=== PATIENT | female | born 1950 | race Caucasian/White ===

== ENCOUNTER 2017-03-16 11:31 | Inpatient (IN) ==
--- OUTSIDE RECORDS SUMMARY | 2017-03-16 11:44 | External Medical Summary | Continuity of Care Document ---
:1950 Author Organization [facility] Address [address] [place] [address] Care Team Providers Name Role Phone Ximena Us MD Unavailable Unavailable Insurance Providers Payer Name Policy Number Subscriber Name Relationship Other Commercial [id number] Kylie Joe Self / Same As Patient Advance Directives Directive Response Recorded Date/Time Do You Have A Living Will? No 03/02/16 2:59pm Do You Have a DPOA? No 03/02/16 2:59pm Problems Active Problems Medical Problem Onset Date Status Tibial plateau fracture Unknown Acute Surgical Problem Onset Date Status History of open reduction and internal fixation (ORIF) procedure 03/04/2016 Acute Medications Current Home Medications Medication Dose Units Route Directions Days/Qty Instructions Start Date Multivitamins 1 1 Udcap Oral Daily for 03/03/16 Udcap Supplement Insulin Detemir 100 15 Unit Sub-Q Bedtime for 15 03/03/16 Unit/Ml (3 Ml) Diabetes Tramadol Hcl 50 Mg 50 Mg Oral Three Times 03/03/16 Daily As Needed for Pain Potassium Chloride 20 Meq Oral Daily for 60 20 MEQ=2 03/03/16 10 Meq Supplement CAPSULES Glyburide 5 Mg 10 Mg Oral Twice A Day for 360 10MG=TWO 03/03/16 Diabetes TABLETS Amlodipine Besylate 10 Mg Oral Daily for 30 03/03/16 10 Mg Coronary Artery Disease Enalapril Maleate 20 Mg Oral Twice A Day for 03/03/16 100 % Hypertension Atorvastatin 80 Mg Oral Daily for 30 03/03/16 Calcium 80 Mg Supplement Meclizine Hcl 12.5 25 Mg Oral Daily for 25MG=TWO 03/03/16 Mg Dizziness TABLETS Metformin Hcl 1,000 1,000 Mg Oral Twice A Day for 03/03/16 Mg Diabetes Furosemide (Lasix 40 Mg Oral As Needed for 30 03/03/16 40 Mg) 40 Mg Diuretic Cyclobenzaprine Hcl 10 Mg Oral Three Times 15 03/03/16 (Flexeril) 5 Mg Daily As Needed for Hypertension Trazodone Hcl 300 300 Mg Oral Bedtime for 03/05/16 Mg Anxiety Aspirin 325 Mg 325 Mg Oral Daily 30 03/06/16 Oxycodone/Acetamino 1-2 Tab Oral Every 4 Hours as 60 03/06/16 phen 5 Mg-325 Mg needed for Pain Past Home Medications Medication Directions Ordered Status Aspirin 81 Mg Tablet.dr, 81 Mg Oral Daily for Anticoagulant 03/03/16 Discontinued Social History Social History Problem Response Recorded Date/Time History of Street Drugs? No 03/03/2016 5:00pm Hx Alcohol Use No 03/03/2016 5:00pm Query Response Start Date Stop Date Smoking status: Unknown if ever smoked Hospital Discharge Instructions Instructions Discharge Discharge/Dismiss patient: Dismiss/release patient order: Home Return to office appointment: 2 WEEKS Plan of Care Discharge Date 03/06/16 5:25pm Instructions/Education Provided Oxycodone/Acetamin(Percocet) CORE MEASURES FOR D/C - [facility] Constipation (DC) ORIF of a Leg Fracture (DC) Prescriptions See Medication Section Functional Status No functional status results. Allergies, Adverse Reactions, Alerts Allergen Type Severity Reaction Status Last Updated Sulfa (Sulfonamide Antibiotics) Allergy Intermediate Active 03/03/16 Iodine Allergy Intermediate Active 03/03/16 Atenolol Allergy Intermediate Active 03/03/16 rossy Allergy Intermediate Active 03/03/16 Immunizations Name Given Type Pneumococcal Adult (23) 03/06/16 Administered Vital Signs Acute Vital Signs Vital Response Date/Time Temperature (Fahrenheit) 98.3 degrees F (97.6 - 99.5) 03/06/2016 4:51pm Pulse Pulse Rate 85 bpm (60 - 100) 03/06/2016 4:51pm Respiratory Rate 18 bpm (10 - 24) 03/06/2016 4:51pm Oxygen Saturation O2 Sat by Pulse Oximetry 97 % (93 - 100) 03/06/2016 4:51pm Blood Pressure 150/70 mm Hg 03/06/2016 4:51pm Blood Pressure Mean 96 mm Hg 03/06/2016 4:51pm Height 5 ft 3 in Weight 201 lb Body Mass Index 35.0 kg/m^2 Results Laboratory Results Test Name Result Units Flags Reference Collection Result Comments Date/Time Date/Time White Blood 10.6 1000/c 3.8-10.8 03/06/2016 03/06/2016 Count mm 5:15am 5:37am Red Blood Count 4.00 MIL/uL 3.80-5.10 03/06/2016 03/06/2016 5:15am 5:37am Hemoglobin 11.6 g/dL L 11.7-15.5 03/06/2016 03/06/2016 5:15am 5:37am Hematocrit 35.0 % 35.0-45.0 03/06/2016 03/06/2016 5:15am 5:37am Mean 88 fL 80-100 03/06/2016 03/06/2016 Corpuscular 5:15am 5:37am Volume Mean 29 pg 27-33 03/06/2016 03/06/2016 Corpuscular 5:15am 5:37am Hemoglobin Mean 33 g/dL 32-36 03/06/2016 03/06/2016 Corpuscular 5:15am 5:37am Hemoglobin Concent Red Cell 12.5 % 11.0-15.0 03/06/2016 03/06/2016 Distribution 5:15am 5:37am Width Platelet Count 253 1000/c 140-400 03/06/2016 03/06/2016 mm 5:15am 5:37am Mean Platelet 8.4 fL L 8.7-11.9 03/06/2016 03/06/2016 Volume 5:15am 5:37am Granulocytes 62.5 % 03/06/2016 03/06/2016 (%) 5:15am 5:37am Lymphocytes % 24.2 % 03/06/2016 03/06/2016 5:15am 5:37am Monocytes % 10.2 % 03/06/2016 03/06/2016 5:15am 5:37am Eosinophils % 2.5 % 03/06/2016 03/06/2016 5:15am 5:37am Basophils % 0.6 % 03/06/2016 03/06/2016 5:15am 5:37am Granulocytes # 6.64 1000/u 1.50-7.80 03/06/2016 03/06/2016 L 5:15am 5:37am Lymphocytes # 2.57 1000/u 0.85-3.90 03/06/2016 03/06/2016 L 5:15am 5:37am Monocytes # 1.08 1000/u H 0.20-0.95 03/06/2016 03/06/2016 L 5:15am 5:37am Eosinophils # 0.27 1000/u 0.01-0.50 03/06/2016 03/06/2016 L 5:15am 5:37am Basophils # 0.06 1000/u 0.00-0.20 03/06/2016 03/06/2016 L 5:15am 5:37am Segmented 58 % 50-70 03/03/2016 03/03/2016 Neutrophils 7:45pm 8:20pm Lymphocytes 30 % 20-44 03/03/2016 03/03/2016 7:45pm 8:20pm Monocytes 6 % 2-9 03/03/2016 03/03/2016 7:45pm 8:20pm Eosinophils 5 % H 0-4 03/03/2016 03/03/2016 7:45pm 8:20pm Basophils 1 % 0-2 03/03/2016 03/03/2016 7:45pm 8:20pm Red Blood Cell NORMAL NORMAL 03/03/2016 03/03/2016 Morphology 7:45pm 8:20pm White Blood NORMAL NORMAL 03/03/2016 03/03/2016 Cell Morphology 7:45pm 8:20pm Platelet LARGE NORMAL 03/03/2016 03/03/2016 Morphology PLTS 7:45pm 8:20pm PRESENT Urine Color YELLOW YELLOW 03/03/2016 03/03/2016 10:00pm 10:13pm Urine CLEAR CLEAR 03/03/2016 03/03/2016 Appearance 10:00pm 10:13pm Urine Specific 1.010 03/03/2016 03/03/2016 [place] 10:00pm 10:13pm Reference Range <=1.005-1.035 Urine pH 7.5 5.0-8.0 03/03/2016 03/03/2016 10:00pm 10:13pm Urine Protein NEGATIVE mg/dL NEGATIVE 03/03/2016 03/03/2016 10:00pm 10:13pm Urine Glucose NEGATIVE mg/dL NEGATIVE 03/03/2016 03/03/2016 10:00pm 10:13pm Urine Ketones NEGATIVE mg/dL NEGATIVE 03/03/2016 03/03/2016 10:00pm 10:13pm Urine Blood NEGATIVE NEGATIVE 03/03/2016 03/03/2016 10:00pm 10:13pm Urine Nitrite NEGATIVE NEGATIVE 03/03/2016 03/03/2016 10:00pm 10:13pm Urine Leukocyte NEGATIVE NEGATIVE 03/03/2016 03/03/2016 Esterase 10:00pm 10:13pm Urine Bilirubin NEGATIVE NEGATIVE 03/03/2016 03/03/2016 10:00pm 10:13pm Urine 0.2 mg/dL 0.2-1.0 03/03/2016 03/03/2016 Urobilinogen 10:00pm 10:13pm N/A No NO 03/03/2016 03/03/2016 10:00pm 10:13pm Sodium Level 135 mmol/L 135-146 03/06/2016 03/06/2016 5:15am 5:51am Potassium Level 3.6 mmol/L 3.5-5.0 03/06/2016 03/06/2016 5:15am 5:51am Chloride Level 96 mmol/L L 98-110 03/06/2016 03/06/2016 5:15am 5:51am Carbon Dioxide 27.2 mmol/L 19.0-30.0 03/06/2016 03/06/2016 Level 5:15am 5:51am Anion Gap 12 7-17 03/06/2016 03/06/2016 5:15am 5:51am Glucose Level 163 mg/dL H 65-99 03/06/2016 03/06/2016 5:15am 5:51am Blood Urea 5 mg/dL L 7-25 03/06/2016 03/06/2016 Nitrogen 5:15am 5:51am Creatinine 0.40 mg/dL L 0.50-0.99 03/06/2016 03/06/2016 5:15am 5:51am Estimated GFR 110 >60 03/06/2016 03/06/2016 (Non- 5:15am 5:51am Units: mL/min/1.73m2) [place] Estimated GFR 128 >60 03/06/2016 03/06/2016 ( 5:15am 5:51am Units: mL/min/1.73m2) [place]) BUN/Creatinine 13 7-25 03/06/2016 03/06/2016 Ratio 5:15am 5:51am Estimated GFR 152.43 ml/min >30 03/06/2016 03/06/2016 Adjusted body ([place] 5:15am 5:51am weight used for t) calculation. Calculated 281 mOSM/k 280-300 03/06/2016 03/06/2016 Osmolality g 5:15am 5:51am Total Protein 6.6 g/dL 6.1-8.1 03/03/2016 03/03/2016 7:45pm 8:10pm Albumin 3.9 g/dL 3.6-5.1 03/03/2016 03/03/2016 7:45pm 8:10pm Globulin 2.7 g/dL 1.9-3.7 03/03/2016 03/03/2016 7:45pm 8:10pm Calcium Level 8.7 mg/dL 8.6-10.2 03/06/2016 03/06/2016 5:15am 5:51am Corrected 9.8 mg/dL 8.6-10.2-c 03/03/2016 03/03/2016 Calcium alc 7:45pm 8:10pm Total Bilirubin 0.3 mg/dL 0.2-1.2 03/03/2016 03/03/2016 7:45pm 8:10pm Magnesium Level 1.8 mg/dL 1.5-2.5 03/04/2016 03/04/2016 3:11am 4:02am Alkaline 56 U/L 33-130 03/03/2016 03/03/2016 Phosphatase 7:45pm 8:10pm Aspartate Amino 19 U/L 10-35 03/03/2016 03/03/2016 Transf 7:45pm 8:10pm (AST/SGOT) Alanine 20 U/L 6-29 03/03/2016 03/03/2016 Aminotransferas 7:45pm 8:10pm e (ALT/SGPT) AST/ALT Ratio 0.950 0.10-40.00 03/03/2016 03/03/2016 7:45pm 8:10pm Bedside Glucose 213 mg/dL H 65-99 03/06/2016 03/06/2016 ONHAR-RR-MYHR TESTING PERFORMED BY PERSONNEL OF: 12:34pm 12:41pm [facility] [address] [place] [address] Procedures Procedure Status Date Provider(s) Open reduction and internal fixation (ORIF) Completed 03/04/16 Edgar Wang MD of fracture of right tibialplateau X-ray of left tibia and fibula Active 03/03/16 Rosas Swenson PA-C X-ray of left foot, three or more views Active 03/03/16 Rosas Swenson X-ray of chest, single view Active 03/03/16 Rosas Swenson PA-C X-ray of right knee, two views Active 03/04/16 Edgar Wang MD 12-lead electrocardiogram Active 03/05/16 Rosas Swenson PA-C Encounters Encounter Location Arrival/Admit Date Discharge/Depart Date Attending Provider Departed [facility] 03/03/16 4:17pm 03/06/16 5:25pm Edgar [facility] Recent Diagnosis Tibial plateau fracture
--- OUTSIDE RECORDS SUMMARY | 2017-03-16 11:44 | External Medical Summary | Clinical Summary ---
:1950 Author Organization [facility] Address [address] [address] Phone Allergies Not on File Current Medications Not on file Active Problems Not on file Social History Tobacco Use Types Packs/Day Years Used Date Never Assessed Sex Assigned at Date Recorded Not on file Plan of Treatment Health Maintenance Due Date Last Done Comments Hepatitis C Screening 1950 DTaP,Tdap,and Td Vaccines (1 - Tdap) 1970 Breast Cancer Screening-Mammogram 2001 Colon Cancer Screening 2001 Zoster Vaccine (#1) 2011 Pneumo-Adult (1 of 2 - PCV13) 2016 Influenza Vaccine (#1) 2016 Results Not on filefrom Last 3 Months
[2017-03-16] MEDS ORDERED: NS 1,000 ML IV ONE (11:45)
[2017-03-16] MEDS: SALINE FLUSH 10ml SYRINGE IVF PRN ×2 (11:53→13:03)
[2017-03-16] MEDS ORDERED: FentaNYL 100 MCG/2 ML INJECTION IVP ONE (12:57)
--- NOTE | 2017-03-16 13:15 | Emergency Department Report ---
General Adult HPI - General Chief complaint: Weakness Stated complaint: weakness Time Seen by Provider: 03/16/17 11:40 - History of Present Illness HPI narrative: 66-year-old female who "feels horrible". She is brought in by EMS because of knee pain and weakness. As we talked about her issues, it seems that it is more weakness that is the problem except for slight increase in knee pain over the last 2 days. She does have a previous history of DVT. She is on our class postop from a total knee replacement done last week. She has been ambulating until the last 2 days when she became too weak and in too much pain to ambulate without more assistance despite using a walker. No fever or chills. Some nausea , no vomiting or diarrhea. She's had no blood in her stool and the wound is not been bleeding. - Related Data Home Medications Medication Instructions Recorded Confirmed Amlodipine [Norvasc] 10 mg PO HS 03/16/17 03/16/17 Apixaban [Eliquis] 2.5 mg PO BID 03/16/17 03/16/17 DiphenhydrAMINE [Benadryl] 25 mg PO Q4H PRN 03/16/17 03/16/17 Enalapril [Vasotec] 20 mg PO DAILY 03/16/17 03/16/17 GlyBURIDE [Micronase] 10 mg PO BID 03/16/17 03/16/17 Hydrocodone/APAP 7.5/325 [[place] 1 tab PO Q4H PRN 03/16/17 03/16/17 7.5/325] Insulin Detemir [Levemir] 15 unit SQ HS 03/16/17 03/16/17 Metformin [Glucophage] 1,000 mg PO BIDWM 03/16/17 03/16/17 Tramadol [Ultram] 50 mg PO Q4H PRN 03/16/17 03/16/17 buPROPion HCl [Wellbutrin Xl] 150 mg PO DAILY 03/16/17 03/16/17 Allergies Allergy/AdvReac Type Severity Reaction Status Date / Time atenolol Allergy Severe ANAPHYLAXSI Verified 03/16/17 11:40 S Estrogens Allergy Severe PE EMBOLSIM Verified 03/16/17 11:40 iodine Allergy Severe ANAPHYLAXIS Verified 03/16/17 11:40 Sulfa (Sulfonamide Allergy Mild Verified 03/16/17 11:40 Antibiotics) alprazolam [From Xanax] AdvReac Mild Verified 03/16/17 11:40 Review of Systems All systems: reviewed and negative except as stated [facility] Medical History (Last Updated 01/08/17 @ 11:45 by Denise Hansen MA) Bronchitis (Acute Medical) Pneumonia (Acute Medical) HTN (hypertension) (Chronic Medical) Hyperlipidemia (Chronic Medical) Type II diabetes mellitus (Chronic Medical) Pulmonary embolism (Resolved Medical) Surgical History: [id number], 1976, 1981. HYSTERECTOMY-1983. SHATTERED TIBIA PLATEAU-2016 ([facility]) Family History: Family History (Last Updated 01/08/17 @ 11:50 by Denise Hansen MA) Mother Arthritis Dementia Heart attack HTN (hypertension) with goal to be determined Stroke Thyroid disease Parkinsons Maternal Aunt Breast cancer Father Bladder cancer Hyperlipidemia Maternal Grandmother Heart attack - Social History Smoking status: Never smoker Substance use type: does not use Physical Exam - Limitations Limitations: no limitations - General General appearance: alert, in distress (pain and fatigue) - Normal Exams: Head:: Normocephalic without trauma Chest/Respirations:: Clear all islas, with good airflow, and symmetry bilaterally Cardiovascular:: Regular rate and rhythm, without murmur or gallop, Pulses 2+ all extremities, capillary refill, <2 seconds all extremities Abdomen:: Bowel sounds positive, soft, non-tender, non-distended, no hepatosplenomegaly, masses or bruits noted Neurological:: Patient is alert, and oriented, cranial nerves, motor/sensory/ cerebellar, exams w/o gross deficits, to observation Psychiatric:: Patient exhibits, appropriate attention, emotion and affect - Expanded Lower Extremity Exam right Knee exam: Present: tenderness (diffusely over the knee joint), swelling ( appropriate.), laceration (incision is healing appropriately), erythema. Absent : full ROM, ecchymosis Course Vital Signs Temperature 97.8 F 03/16/17 11:35 Pulse Rate 112 H 03/16/17 11:35 Respiratory Rate 16 03/16/17 11:35 Blood Pressure 130/59 03/16/17 11:35 Pulse Oximetry 100 03/16/17 11:35 Temperature 97.8 F 03/16/17 11:35 Pulse Rate 112 H 03/16/17 11:35 Respiratory Rate 16 03/16/17 11:35 Blood Pressure 130/59 03/16/17 11:35 Pulse Oximetry 100 03/16/17 11:35 Medical Decision Making - Medical Records Medical records reviewed: Yes: I reviewed the patient's medical records. - Lab Data Result diagrams: 03/16/17 11:55 03/16/17 11:55 Lab Results 03/16/17 03/16/17 03/16/17 Range/Units 11:55 11:55 12:12 WBC 21.1 H (4.5-11.0) T/MM3 RBC 1.65 L (4.00-5.20) M/MM3 Hgb 4.8 L* (12-16) GM/DL Hct 15.7 L* (36-46) % MCV 95.2 (80-100) UM3 MCH 29.1 (26-34) UUG MCHC 30.6 L (31-37) GM/DL RDW Std Deviation 42.7 (36.9-50.2) FL Plt Count 456 H (130-400) T/MM3 MPV 8.7 L (9.4-12.4) UM3 Immature Gran % (Auto) Not performed Neut % (Auto) Not performed Lymph % (Auto) Not performed [place] % (Auto) Not performed Eos % (Auto) Not performed Baso % (Auto) Not performed Neut # (Auto) Not performed Lymph # (Auto) Not performed [place] # (Auto) Not performed Eos # (Auto) Not performed Baso # (Auto) Not performed Abs Immat Gran (auto) Not performed Neutrophils % (Manual) 60.0 (33-66) % Band Neutrophils % 5.0 (0-6) % Lymphocytes % (Manual) 15.0 L (23-45) % Monocytes % (Manual) 8.0 (0-9.0) % Eosinophils % (Manual) 3.0 (0-4) % Metamyelocytes % 5.0 H (0-0) % Myelocytes % 4.0 H (0-0) % Neutrophils # (Manual) 12.7 H (1.8-7.7) T/MM3 Band Neutrophils # 1.1 T/MM3 Lymphocytes # (Manual) 3.2 (1-4.8) T/MM3 Monocytes # (Manual) 1.7 H (0-0.8) T/MM3 Eosinophils # (Manual) 0.6 H (0-0.5) T/MM3 Metamyelocytes # 1.1 T/MM3 Myelocytes # 0.8 T/MM3 Nucleated RBCs 1 Anisocytosis 1+ RBC Morph Comment Abnormal Turbidity < 20 (0-20) Sodium 131 L (134-144) MEQ/L Potassium 4.6 (3.6-5) MEQ/L Chloride 99 (98-107) MEQ/L Carbon Dioxide 23 (22-30) MEQ/L Anion Gap 9 (5-15) MEQ/L BUN 25.0 H (7-17) MG/DL Creatinine 0.5 L (0.7-1.2) MG/DL GFR Calculation 124 BUN/Creatinine Ratio 50 H (6-26) RATIO Glucose 262 H (65-110) MG/DL Calculated Osmolality 266 (261-280) MOSM/KG Calcium 8.4 (8.4-10.2) MG/DL Total Bilirubin 0.40 (0.20-1.30) MG/DL Icterus Index < 2 (0-7) AST 17 (14-36) U/L ALT 28 (9-52) U/L Alkaline Phosphatase 46 (38-126) U/L C-Reactive Protein 11.4 H (0-9) MG/L Total Protein 5.6 L (6.3-8.2) G/DL Albumin 3.0 L (3.5-5.0) G/DL Globulin 2.6 (2.4-3.6) G/DL Albumin/Globulin Ratio 1.2 (1.1-2.2) RATIO Plasma Lactate 2.3 H (0.6-2.2) MMOL/L Specimen Hemolysis < 15 (0-25) Ur Collection Type Urine, clean catch Urine Color Yellow (YELLOW) Urine Clarity Clear Urine pH 5.5 (5.0-8.0) Ur Specific [place] 1.020 (1.015-1.025) Urine Protein Negative (NEGATIVE) Urine Glucose (UA) 2+ A (NEGATIVE) Urine Ketones 1+ A (NEGATIVE) Urine Occult Blood Negative (NEGATIVE) Urine Nitrate Negative (NEGATIVE) Urine Bilirubin Negative (NEGATIVE) Urine Urobilinogen 0.2 (NORMAL) EU/DL Ur Leukocyte Esterase Negative (NEGATIVE) Urinalysis Comment Microscopic not ind. Blood Type Antibody Screen Crossmatch (AHG) 03/16/17 Range/Units 12:15 WBC (4.5-11.0) T/MM3 RBC (4.00-5.20) M/MM3 Hgb (12-16) GM/DL Hct (36-46) % MCV (80-100) UM3 MCH (26-34) UUG MCHC (31-37) GM/DL RDW Std Deviation (36.9-50.2) FL Plt Count (130-400) T/MM3 MPV (9.4-12.4) UM3 Immature Gran % (Auto) Neut % (Auto) Lymph % (Auto) [place] % (Auto) Eos % (Auto) Baso % (Auto) Neut # (Auto) Lymph # (Auto) [place] # (Auto) Eos # (Auto) Baso # (Auto) Abs Immat Gran (auto) Neutrophils % (Manual) (33-66) % Band Neutrophils % (0-6) % Lymphocytes % (Manual) (23-45) % Monocytes % (Manual) (0-9.0) % Eosinophils % (Manual) (0-4) % Metamyelocytes % (0-0) % Myelocytes % (0-0) % Neutrophils # (Manual) (1.8-7.7) T/MM3 Band Neutrophils # T/MM3 Lymphocytes # (Manual) (1-4.8) T/MM3 Monocytes # (Manual) (0-0.8) T/MM3 Eosinophils # (Manual) (0-0.5) T/MM3 Metamyelocytes # T/MM3 Myelocytes # T/MM3 Nucleated RBCs Anisocytosis RBC Morph Comment Turbidity (0-20) Sodium (134-144) MEQ/L Potassium (3.6-5) MEQ/L Chloride (98-107) MEQ/L Carbon Dioxide (22-30) MEQ/L Anion Gap (5-15) MEQ/L BUN (7-17) MG/DL Creatinine (0.7-1.2) MG/DL GFR Calculation BUN/Creatinine Ratio (6-26) RATIO Glucose (65-110) MG/DL Calculated Osmolality (261-280) MOSM/KG Calcium (8.4-10.2) MG/DL Total Bilirubin (0.20-1.30) MG/DL Icterus Index (0-7) AST (14-36) U/L ALT (9-52) U/L Alkaline Phosphatase (38-126) U/L C-Reactive Protein (0-9) MG/L Total Protein (6.3-8.2) G/DL Albumin (3.5-5.0) G/DL Globulin (2.4-3.6) G/DL Albumin/Globulin Ratio (1.1-2.2) RATIO Plasma Lactate (0.6-2.2) MMOL/L Specimen Hemolysis (0-25) Ur Collection Type Urine Color (YELLOW) Urine Clarity Urine pH (5.0-8.0) Ur Specific [place] (1.015-1.025) Urine Protein (NEGATIVE) Urine Glucose (UA) (NEGATIVE) Urine Ketones (NEGATIVE) Urine Occult Blood (NEGATIVE) Urine Nitrate (NEGATIVE) Urine Bilirubin (NEGATIVE) Urine Urobilinogen (NORMAL) EU/DL Ur Leukocyte Esterase (NEGATIVE) Urinalysis Comment Blood Type O Positive Antibody Screen Negative Crossmatch (AHG) See Detail Disposition Prescriptions: No Action Hydrocodone/APAP 7.5/325 [[place] 7.5/325] 1 tab PO Q4H PRN PRN Reason: Pain Apixaban [Eliquis] 2.5 mg PO BID buPROPion HCl [Wellbutrin Xl] 150 mg PO DAILY Enalapril [Vasotec] 20 mg PO DAILY Amlodipine [Norvasc] 10 mg PO HS Insulin Detemir [Levemir] 15 unit SQ HS GlyBURIDE [Micronase] 10 mg PO BID DiphenhydrAMINE [Benadryl] 25 mg PO Q4H PRN PRN Reason: Itching Tramadol [Ultram] 50 mg PO Q4H PRN PRN Reason: Pain Metformin [Glucophage] 1,000 mg PO BIDWM Referrals: Evan Sharp DO [Family Provider] -
[2017-03-16] MEDS ORDERED: NS FLUSH BAG 500ml IV PRN ×2 (14:10→14:11)
[2017-03-16 14:29] VITALS: BMI 33.5
[2017-03-16] MEDS ORDERED: MORPHINE SULFATE 2mg INJECTION IVP PRN (14:37)
[2017-03-16] MEDS ORDERED: CEFTRIAXONE 1 G in NS 100 ML IV SCH (14:45)
[2017-03-16] MEDS ORDERED: ONDANSETRON 4 MG/2 ML INJECTION IVP PRN (15:00)
[2017-03-16] MEDS ORDERED: SALINE FLUSH 10ml SYRINGE IV PRN (15:00)
[2017-03-16] MEDS ORDERED: DiphenhydrAMINE 25 MG CAPSULE PO PRN (15:05)
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
--- NOTE | 2017-03-16 15:50 | Pharmacy Consult-Antibiotics ---
Pharmacy Consult-Vancomycin - Laboratory Information WBC 21.1 T/MM3 (4.5-11.0) H 03/16/17 11:55 BUN 25.0 MG/DL (7-17) H 03/16/17 11:55 Creatinine 0.5 MG/DL (0.7-1.2) L 03/16/17 11:55 Procalcitonin 0.10 NG/ML 03/16/17 11:55 - Consult Information 66 y.o. female started on Vancomycin per pharmacy protocol for empiric coverage of possible septic joint. goal trough range= 15 to 20 mcg/ml Will give vancomycin 1,750 mg IV x 1 dose then Vancomycin 1,500 mg IV Q18H starting 03/17/17 @1000 Pharmacy will monitor and adjust as needed. Thank you, Andie Boyle [facility]
[2017-03-16] MEDS: NS 1,000 ML IV SCH ×2 (16:57→22:38)
[2017-03-16] MEDS: GLYBURIDE 5 MG TABLET PO SCH (17:47)
[2017-03-16] MEDS ORDERED: FUROSEMIDE 20 MG/2 ML INJECTION IVP ONE (19:00)
[2017-03-16] MEDS: SENNA + DOCUSATE TABLET PO SCH (20:58)
[2017-03-16] MEDS: INSULIN DETEMIR 100unit/ml INJECTION SQ SCH (20:58)
[2017-03-16] MEDS: HYDROCODONE/APAP 7.5 MG/325 MG TABLET PO PRN (21:29)
[2017-03-16] MEDS: TRAMADOL 50 MG TABLET PO PRN (22:31)
[2017-03-16] MEDS: CYCLOBENZAPRINE 10 MG TABLET PO PRN (23:33)
[2017-03-17] MEDS: HYDROCODONE/APAP 7.5 MG/325 MG TABLET PO PRN ×4 (02:36→20:25)
[2017-03-17] MEDS: CYCLOBENZAPRINE 10 MG TABLET PO PRN ×3 (06:18→16:29)
[2017-03-17] MEDS: TRAMADOL 50 MG TABLET PO PRN ×4 (06:19→23:23)
--- NOTE | 2017-03-17 07:39 | Ultrasound Report ---
Indication: post knee replacement, hx of dvt PROCEDURE: US venous doppler LE RT: Encounter: Initial Comparison: None Technique: Color Doppler duplex and grayscale sonographic imaging of the right lower extremity was performed. Findings: There is no evidence for acute deep venous thrombosis in the right thigh. Specifically, serial graded compression was performed from the inguinal ligament to the popliteal bifurcation, on the right thigh, demonstrating appropriate compressibility of the deep venous system. In addition, color and pulsed Doppler demonstrate appropriate spontaneous flow, variation with respiration, and augmentation with calf compression. At the ankle, normal flow is identified in the posterior tibial veins; these vessels are also normal in caliber. Impression: No evidence of acute DVT in the right lower limb. There is a preliminary report by [facility]. .
[2017-03-17] MEDS: GLYBURIDE 5 MG TABLET PO SCH ×2 (09:36→17:57)
[2017-03-17] MEDS: SALINE FLUSH 10ml SYRINGE IVF PRN ×2 (09:36→13:19)
[2017-03-17] MEDS: BuPROPion XL 150mg (24HR) TABLET PO SCH (09:36)
[2017-03-17] MEDS: CEFTRIAXONE 1 G in NS 100 ML IV SCH (09:37)
[2017-03-17] MEDS: SENNA + DOCUSATE TABLET PO SCH ×2 (09:56→21:00)
[2017-03-17] MEDS: POLYETHYL GLYCOL 3350 17gm PACKET PO SCH (09:57)
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
--- NOTE | 2017-03-17 12:25 | XRay Report ---
INDICATION: post op PROCEDURE: CHEST 2-VIEWS UPRIGHT (PA & LAT) Encounter: Initial COMPARISON: February 18, 2017 FINDINGS: The lungs are clear without evidence of focal abnormal airspace opacity. There is no pleural effusion or pneumothorax. The heart size, mediastinal contours and pulmonary vascularity are within normal limits. There is no significant skeletal abnormality. IMPRESSION: No acute cardiopulmonary disease. .
[2017-03-17] MEDS ORDERED: INSULIN ASPART 100unit/ml INJECTION SQ ONE (13:17)
[2017-03-17] MEDS ORDERED: PNEUMOCOCCAL VAC ADMIN CHARGE INJ ONE (14:00)
[2017-03-17] MEDS ORDERED: PNEUMOCOCCAL 23 VACCINE 0.5ml INJECTION IM ONE (16:50)
[2017-03-17] MEDS: METFORMIN 1,000 MG TABLET PO SCH (18:17)
[2017-03-17] MEDS: INSULIN ASPART 100unit/ml INJECTION SQ PRN (21:50)
[2017-03-17] MEDS: INSULIN DETEMIR 100unit/ml INJECTION SQ SCH (21:50)
[2017-03-18] MEDS: CYCLOBENZAPRINE 10 MG TABLET PO PRN (00:20)
[2017-03-18] MEDS: HYDROCODONE/APAP 7.5 MG/325 MG TABLET PO PRN ×3 (03:30→13:11)
[2017-03-18] MEDS: TRAMADOL 50 MG TABLET PO PRN (06:10)
[2017-03-18] MEDS: INSULIN ASPART 100unit/ml INJECTION SQ PRN ×2 (06:10→10:28)
[2017-03-18] MEDS: SALINE FLUSH 10ml SYRINGE IVF PRN (06:16)
[2017-03-18 07:54] VITALS: BP 147/70; RESP 16; TEMP 98.6; O2SAT 100
[2017-03-18] MEDS ORDERED: FERROUS SULFATE 324 MG TABLET PO SCH (08:00)
[2017-03-18 08:44] VITALS: PULSE 100
[2017-03-18] MEDS: SENNA + DOCUSATE TABLET PO SCH (09:01)
[2017-03-18] MEDS: BuPROPion XL 150mg (24HR) TABLET PO SCH (09:02)
[2017-03-18] MEDS: GLYBURIDE 5 MG TABLET PO SCH (09:02)
[2017-03-18] MEDS: METFORMIN 1,000 MG TABLET PO SCH (09:02)
[2017-03-18] MEDS: POLYETHYL GLYCOL 3350 17gm PACKET PO SCH (09:02)
[2017-03-18] MEDS: CEFTRIAXONE 1 G in NS 100 ML IV SCH (09:03)
--- NOTE | 2017-03-18 17:31 | Discharge Summary ---
<Gloria Fajardo - Last Filed: 03/18/17 17:26> Discharge Information Date of admission: 03/16/17 13:36 Anticipated date of discharge: 03/18/17 Attending Physician: Luciana Tinajero MD Primary care physician: Evan Sharp, DO - Discharge Diagnosis (1) Severe anemia Status: Acute (2) Acute blood loss as cause of postoperative anemia Status: Acute Severe postoperative anemia, Acute blood loss (baseline HGB 14.1) S/P Complex right TKR with revision Shock: Hypovolemia vs. Severe Sepsis= Tachycardia, Tachypnea Postoperative fever - resolved Leukocytosis-POA DM2 HTN Remote H/O Provoked PE Left shoulder pain, H/O Whiplash - Laboratory Labs: Admission labs 03/16/17 11:55 WBC 21.1 H RBC 1.65 L Hgb 4.8 L* Hct 15.7 L* Plt Count 456 H 03/16/17 11:55 Sodium 131 L Potassium 4.6 Chloride 99 Carbon Dioxide 23 BUN 25.0 H Creatinine 0.5 L BUN/Creatinine Ratio 50 H Glucose 262 H AST 17 ALT 28 03/16/17 03/16/17 03/16/17 11:55 11:55 14:53 Troponin I < 0.012 C-Reactive Protein 11.4 H Total Protein 5.6 L Plasma Lactate 2.3 H Procalcitonin 0.10 Dismissal labs 03/18/17 03/18/17 03:59 12:47 WBC 17.0 H Hgb 8.6 L D Hct 27.2 L D MCV 89.7 MCH 28.3 MCHC 31.6 RDW Std Deviation 45.5 Plt Count 382 03/18/17 12:47 Sodium 138 Potassium 3.9 Chloride 103 Carbon Dioxide 25 BUN 6.0 L Creatinine 0.5 L GFR Calculation 124 Glucose 109 Lactate Dehydrogenase 679 H - Microbiology No growth on blood cultures - Radiology Radiology: Date of Exam: 03/16/17 Indication: post knee replacement, hx of dvt PROCEDURE: US venous doppler LE RT: Impression: No evidence of acute DVT in the right lower limb. Date of Exam: 03/16/17 INDICATION: post op PROCEDURE: CHEST 2-VIEWS UPRIGHT (PA & LAT) FINDINGS: The lungs are clear without evidence of focal abnormal airspace opacity. There is no pleural effusion or pneumothorax. The heart size, mediastinal contours and pulmonary vascularity are within normal limits. There is no significant skeletal abnormality. IMPRESSION: No acute cardiopulmonary disease. History of Present Illness HPI: Kylie is a pleasant 66 yo female who underwent an elective right TKR with revision of prior placed plate with non-healing union from a traumatic injury in [place], [place] one year ago on . She does follow with Dr. Sharp, and his last office note was reviewed. She was found to have an abnormal EKG, she reports that she was referred to [facility] and underwent stress testing- she reports it was normal. She underwent surgery at [facility] under the care of Dr. Ad Kang. She has a prior history of PE while on Estrogen therapy, and was started on Eliquis post- operatively for DVT/PE prevention. She reports over the last 2-3 days, she has been feeling progressively worse. She has been weak and fatigued. Increased exertional effort. She has felt dizzy and near syncopal. Today, she called EMS due to progressive illness- she was found to have an extremely low HGB of 4.8. Preoperative HGB was 14.1. In addition to severe anemia, she was found to have significant leukocytosis with elevated lactate. Dr. Kang was contacted re: pt. status. He did reports that the surgery was very traumatic and complex with larger than normal blood loss. In addition, he did not have concerns intra-operatively that joint was infected. It was initially felt that the leukocytosis was due to acute reactive marrow response due to severe anemia. However, pt does report that she had a temp of 101 upon her first day back home. States she has been running at least a 99 degree temp, normal for her is around 98. She reports that she has not had any urinary symptoms. No excessive drainage on leg- dressing is intact with some bloody drainage in place. She also is c/o fairly severe left neck pain. She states that she has a prior history of whiplash years ago, and this pain seems to be typical of that past pain. She is very restless and has difficulty getting comfortable. She is rating her pain at 10/10. She denies any radiating pain into her back. She does admit some intermittent jaw pain over the last couple of days. Does have some mild SOA. No new or persistent cough. No abdominal c/o. Please note that I did put oxygen back on her due to the severe neck/shoulder pain on the left side. (Her O2 sats on RA were 99%) She did have fairly significant improvement in both anxiety and pain with oxygen on. Given her tenuous status, I did ask Dr. Tinajero to join us during the exam to assist with pt. assessment. Objective Vital signs: Temperature 98.6 F 03/18/17 07:53 Pulse Rate 100 03/18/17 08:15 Respiratory Rate 16 03/18/17 07:53 Blood Pressure 147/70 H 03/18/17 07:54 Pulse Oximetry 100 03/18/17 07:54 Height/Weight/BMI: Height 1.6 m Weight 86.6 kg Body Mass Index 33.5 - Constitutional Present: no acute distress, well nourished, well developed - Routine HEENT Exam Head: Present: normocephalic, atraumatic - Routine Respiratory Exam Present: CTA bilaterally. Absent: wheezes - Routine Cardiovascular Exam Present: RRR. Absent: murmur - Routine Abdominal Exam Present: soft, normoactive bowel sounds, non distended. Absent: tenderness - Routine Extremities Exam Present: edema (RLE), no edema (LLE), normal capillary refill - Routine Skin Exam Present: dry, warm - Routine Neurological Exam Present: alert, oriented X3 - Routine Lymphatic Exam Lymphatic: Absent: adenopathy - Routine Psychiatric Exam Present: normal affect, cooperative Hospital Course This is a general summary of the patient's hospital course. For more details refer to the complete medical record. Hospital course: Patient was initially admitted due to severe anemia with a hemoglobin of 4.8. This was thought to be due to acute blood loss related to recent knee surgery. She was initially transfused 2 units of PRBCs. Her Eliquis was put on hold. She was started on vancomycin and ceftriaxone empirically due to positive sepsis markers of elevated lactate and persistent fever. Her metformin was held given the elevated lactate. Patient was quite anxious and complained of left shoulder pain, thus troponin was performed. This was negative. Both of her blood pressure medicines were on hold due to her significant anemia as well. The next morning her hemoglobin was 6.3. She had a third unit of PRBCs transfused at that time. Her metformin was resumed as her lactate was back to normal. She did not run a fever during her hospital stay, however, she did have persistent leukocytosis which is likely related to her recent surgery. The following morning her hemoglobin was 7.7 and by time of dismissal she was up to 8.6. She was feeling fine at the time of dismissal other than her pain, which she reported as tolerable. Her pain was treated with [place], Toradol and cyclobenzaprine. Given that she had no growth on her blood cultures and there is no sign of infection on exam of the knee, she was not continued on outpatient antibiotics. She was dismissed in stable condition with her with instructions to use Tylenol 500 mg 3 times a day and [place] 7.5/325 up to every 4-6 hours and Toradol up to 3 times a day as needed for pain. She was encouraged to use the [place] and Toradol sparingly, and try to avoid use of the cyclobenzaprine if she does not need it. She was past the timeframe for the Eliquis by the time she was dismissed, so she was to resume her aspirin dosage per Dr. Kang. She will add back her antihypertensive medicines as needed. She will monitor her blood pressure at home and if it is greater than 135/85 she will add one of her medicines and, if she continues to run above that, she will add the other one in. She'll continue on iron supplementation She will see Dr. Sharp later this week to repeat a CBC and follow up on her pain medications and blood pressure. She is scheduled within the next week to see Dr. Kang for follow-up as well. She understands if she develops any fever, increase in pain or notes redness or other signs of infection of the knee she needs to follow-up immediately. Time spent with patient: greater than 35 minutes Discharge Plan - Discharge Disposition Discharge Date: 03/18/17 Disposition: 01 Discharged Home, Self-Care *Condition: Stable Reason For Visit (Visit label in EMR): post-op anemia - Discharge Medications *Discharge Medications: New Cyclobenzaprine [Flexeril] 10 mg PO TID PRN #30 tab PRN Reason: Muscle Spasm Ferrous Sulfate [Feosol] 324 mg PO WB #30 tab PEG 3350 17gm PACKET [Miralax] 17 gm PO DAILY packet Continue Hydrocodone/APAP 7.5/325 [[place] 7.5/325] 1 tab PO Q4H PRN PRN Reason: Pain buPROPion HCl [Wellbutrin Xl] 150 mg PO DAILY Enalapril [Vasotec] 20 mg PO DAILY Amlodipine [Norvasc] 10 mg PO HS Insulin Detemir [Levemir] 15 unit SQ HS GlyBURIDE [Micronase] 10 mg PO BID DiphenhydrAMINE [Benadryl] 25 mg PO Q4H PRN PRN Reason: Itching Tramadol [Ultram] 50 mg PO Q4H PRN PRN Reason: Pain Metformin [Glucophage] 1,000 mg PO BIDWM Discontinued Apixaban [Eliquis] 2.5 mg PO BID - Discharge Packet/Instructions *Diet: diabetic/carbohydrate consistent diet *Activity: as tolerated - schedule with outpatient Physical Therapy *Pain Management/Treatment: Use Tylenol 500mg 3-4x a day routinely for pain. Use hydrocodone/APAP as needed for pain not controlled by Tyenol. Only use cyclobenzaprine or tramadol if you absolutely must as all of these medications together can affect the central nervous system and cause drowsiness or other side effects. *Wound Care: Per ortho Additional Instructions: Resume aspirin or whatever regimen Dr. Kang had recommended post surgery. *Expected Signs/Symptoms: Improving pain. Decrease in swelling over time. *Notify Physician if: You have worsening pain, develop fever or develop redness at incision site *During Business Hours Contact: Dr Kang's office or Dr. Sharp's office *After Business Hours Contact: Follow after hours instructions from Dr. Kang' s office. *Pending Lab/Results: No Pending Lab - Referrals/Follow Up *Referrals/Follow Up: Evan Sharp DO [Family Provider] - 2 Days (Follow-up with Dr. Sharp on or Friday of this week with a CBC at that visit. Follow-up with Dr. Kang as scheduled) Ad Kang [Physician] - () - Patient Handouts Patient Handouts: Anemia (DC), Blood Transfusion (GEN) <Luciana Tinajero - Last Filed: 03/18/17 21:04> Discharge Information - Discharge Diagnosis (1) Severe anemia Status: Acute (2) Acute blood loss as cause of postoperative anemia Status: Acute Hospital Course This is a general summary of the patient's hospital course. For more details refer to the complete medical record. Hospital course: I have independently evaluated and examined this patient. I reviewed the chart, the patient's history, and the [employer]/PA's documented findings as above. We discussed and formulated the assessment and plan as above with additions as below: Mrs. Hernandez reports feeling well today. She denied dyspnea or exertional dyspnea has had no palpitations or apparent blood loss since admission (or prior to admission). Respirations were nonlabored with good airflow, skin color was clearly improved from admission, low-grade tachycardia persists and there is +1 edema with bruising in her right lower extremity. Hemoglobin is stable at 8.6 at discharge following transfusion of 3 units of packed red blood cells. The patient will follow up with Dr. Sharp as noted and she is scheduled for follow-up with Dr. Kang on March 25 at 3 PM.
== END 2017-03-18 15:10 | disposition home health service (06) | DRG 812 ==
LOC: ED 11:31 → SRG 11:31 → OBSVTOIN 13:55 → SRG 14:05
PROVIDERS: ADMIT Internal Medicine; ATTEND Internal Medicine